=== PATIENT | female | born 1990 | race Caucasian/White ===

== ENCOUNTER 2022-09-14 13:07 | Inpatient (IN) ==
[2022-09-15] MEDS ORDERED: LIDOCAINE 1% LOCAL 20 ML VIAL INFIL PRN (07:38)
[2022-09-15] MEDS ORDERED: OXYTOCIN 30 UNITS/500 ML BAG IV PRN ×3 (07:38→16:56)
--- NOTE | 2022-09-15 07:41 | History & Physical Report ---
Date of Service September 15, 2022 Assessment & Plan (1) with 39 completed weeks gestation: (2) Encounter for induction of labor: Plan admit. Plan to induce per pitocin. Fetus category one. Anticipate . Admission and Anticipated Discharge Date Admission Date: September 15, 2022 History of Present Illness Chief Complaint: elective induction Primary Care Provider: Christin Edward MD Patient is a 32yowf who presents at39 2/7 weeks for elective induction. Patient has had an uncomplicated . occasional contraction. no lof/vb. +fm and Delivery Plans Flu shot elsewhere 2021 SB Desires elective induction 09/15 OB Labs: Blood Type B Positive 02/12/22 Antibody Screen NEGATIVE 02/12/22 Hemoglobin 11.5 g/dl (12.0-16.0) L 07/02/22 Hematocrit 34.8 % (34.1-44.9) 07/02/22 Mean Corpuscular Volume 88.5 fL (80-100) 02/12/22 Platelet Count 273 K/uL (130-400) 02/12/22 Rubella IgG Antibody Immune (Immune) 02/12/22 Rapid Plasma Reagin Nonreactive (Nonreactive) 02/12/22 Hepatitis B Surface Antigen. NON-REACTIVE (NON-REACTIVE) 02/12/22 Hepatitis C Antibody (EIA) NON-REACTIVE (NON-REACTIVE) 02/12/22 HIV (1&2) Ag and Ab Confirmation NON-REACTIVE (NON-REACTIVE) 02/12/22 Glucose 1 Hour 50 gm Load 170 mg/dl (70-130) H 04/16/22 Maternal Serum Alpha Fetoprotein 44.8 ng/mL 04/16/22 OB Optional Labs: Chlamydia trachomatis RNA NOT DETECTED (NOT DETECTED) 02/12/22 Neisseria gonorrhoeae RNA NOT DETECTED (NOT DETECTED) 02/12/22 Alpha Fetoprotein Triple Screen SEE NOTE 04/16/22 Labs Reviewed: 02/12/22- Hep B- Non reactive, Hep C- Non reactive, HIV- Non reactive cf/sma-negative--mln cfdna-low risk--mln passed 2 hr gtt x 2 gbs negative. Allergies Allergy/AdvReac Type Severity Reaction Status Date / Time No Known Allergies Allergy Verified 09/15/22 07:49 Home Medications Medication Instructions Recorded Confirmed Type prenat.vits,arelis,[id number] 1 tab PO DAILY 02/05/22 09/15/22 History breast pump #1 ea 07/23/22 09/12/22 Rx hydrocortisone 2.5 % topical cream 1 applic [place] BID PRN hemorrhoids 08/13/22 09/15/22 Rx with perineal applicator #30 grams (Anusol-HC) Patient History Medical History Anxiety Depression Hemorrhoids during History of chicken pox Varicella vaccination Surgical History S/P wisdom tooth extraction Family History Aunt Breast cancer Father Prostate cancer Mother Diabetes Hypertension Hypercholesteremia Denies family history of Ovarian cancer Colorectal cancer Social History Smoking Status: Never smoker Hx Alcohol Use: No Hx Substance Use: No marital status: marital status details: Richardson Banuelos(30) [phone] Current Living Situation: Spouse and Family Current Living Situation Comment: lives with spouse, daughter, dog current occupational status: employed current occupation: [employer] Feels Safe at Home: Yes Physical Exam Constitutional: WD/WN, vitals as above Cardiovascular: Extremities: no calf tenderness and no edema Gastrointestinal (Abdomen): soft, gravid, nt Psychiatric: A+Ox3, euthymic affect Genitourinary: cx--4/50/-2 toco--rare efm--140s wtih mod variability, accels to 160s, no decels Coding Level of Care Code None Diagnoses with 39 completed weeks gestation Z3A.39 Encounter for induction of labor Z34.90
[2022-09-15 08:15] LABS: Hematocrit (blood only) 35.7 % (34.1-44.9); Hemoglobin 12.3 g/dl (12.0-16.0); Mean Corpuscular Hgb Conc 34.5 g/dL (32.0-36.0); Mean Corpuscular Volume 87.1 fL (80.0-100.0); Mean Platelet Volume 11.3 fL (9.4-12.3); Platelet Count 218 K/uL (130-400); RDW Coefficient of Variation 13.8 % (11.5-14.5); RDW Standard Deviation 43.3 fL (36.4-46.3); White Blood Count 7.89 K/ul (4.8-10.8)
[2022-09-15] MEDS: LACTATED RINGER'S 1,000 ML IV PRN ×2 (08:48→12:22)
[2022-09-15] MEDS ORDERED: ePHEDrine sulfate 50 MG/ML AMP ONE (11:30)
[2022-09-15] MEDS ORDERED: fentaNYL citrate 100 MCG/2 ML VIAL ONE (11:30)
[2022-09-15] MEDS ORDERED: LIDOCAINE 2%/EPINEPHRINE 1:200,000 20 ML SDV ONE (11:31)
[2022-09-15] MEDS ORDERED: fentaNYL 2MCG/ML ROPIVACAINE 1.25MG/ML 100 ML BAG EPI ONE (11:31)
[2022-09-15] MEDS ORDERED: BUPIVACAINE 0.25% 30 ML VIAL ONE (11:31)
[2022-09-15] MEDS ORDERED: SODIUM CHLORIDE 0.9% INJ 10 ML VIAL ONE (11:31)
[2022-09-15] MEDS ORDERED: NALOXONE HCL 1 MG in SODIUM CHLORIDE 0.9% 1000ML 1,000 ML IV PRN (11:52)
[2022-09-15] MEDS ORDERED: ePHEDrine sulfate 50 MG/ML AMP IV PRN (11:52)
[2022-09-15] MEDS ORDERED: NALBUPHINE HCL INJ 10 MG/ML AMP IV PRN (11:52)
[2022-09-15] MEDS ORDERED: ONDANSETRON INJ 2 MG/ML 2 ML VIAL IV PRN (11:52)
[2022-09-15] MEDS ORDERED: diphenhydrAMINE 50 MG/ML VIAL IV PRN (11:52)
[2022-09-15] MEDS ORDERED: NALOXONE HCL 0.4 MG/1 ML VIAL/CARP IV PRN (11:52)
[2022-09-15] MEDS ORDERED: fentaNYL 2MCG/ML ROPIVACAINE 1.25MG/ML 100 ML BAG EPI PRN (11:52)
--- NOTE | 2022-09-15 11:54 | Anesthesiology Consultation ---
Date of Service September 15, 2022 Assessment & Plan Chart Review Chart Review: Patient NOT seen in Pre Admission Testing and Acceptable Risk for Labor Epidural Consults Requested none ASA ASA2 Proposed Anesthesia Anesthesia Type: Labor Epidural and CSE Risk / Benefits Reviewed With: PT / POA / Parent / Guardian, Accepts Plan and Informed Consent Obtained History Height/Weight Height: 5 ft 3 in Weight: 74.843 kg Allergies Allergy/AdvReac Type Severity Reaction Status Date / Time No Known Allergies Allergy Verified 09/15/22 07:49 Medications Home Medications Medication Instructions Recorded Confirmed Last Taken prenat.vits,arelis,[id number] 1 tab PO DAILY 02/05/22 09/15/22 09/14/22 21:00 breast pump #1 ea 07/23/22 09/12/22 Unknown hydrocortisone 2.5 % topical cream 1 applic [place] BID PRN hemorrhoids 08/13/22 09/15/22 Unknown with perineal applicator #30 grams (Anusol-HC) Active Medications Generic Name Dose Route Start Last Admin Trade Name Freq PRN Reason Stop Dose Admin Lactated Ringer's 1,000 mls @ 125 mls/hr 09/15/22 07:38 09/15/22 11:37 Lr IV 09/17/22 07:37 999 mls/hr .Q8H PRN Infusion L&D Protocol Protocol Oxytocin 30 units in 500 mls @ 7 mls/hr 09/15/22 07:43 09/15/22 11:00 Pitocin IV 09/17/22 07:42 0.42 units/hr .Q24H PRN 7 mls/hr Labor Induction/Augmentation Titration Protocol 0.42 UNITS/HR NPO Date Last Intake of Fluids: 09/15/22 Time Last Intake of Fluids: 11:00 Date Last Intake of Solids: 09/15/22 Time Last Intake of Solids: 08:00 Past Medical History Medical History Anxiety Depression Hemorrhoids during History of chicken pox Varicella vaccination Exercise / Class Metabolic Activity II 4-5 Yardwork/Stairs/Walk up hill Past Family History Family History Aunt Breast cancer Father Prostate cancer Mother Diabetes Hypertension Hypercholesteremia Denies family history of Ovarian cancer Colorectal cancer Past Surgical History Surgical History S/P wisdom tooth extraction Past Anesthesia History No Hx of Anesthesia Complications and No Family Hx of Anesthesia Complications History of PONV No Hx of PONV and No Hx of Motion Sickness Social History Smoking Status: Never smoker Hx Alcohol Use: No Hx Substance Use: No substance use type: does not use Review of Systems no chest pain or sob Physical Exam Vital Signs Last Vital Signs Temp 36.8 C 09/15/22 11:00 Pulse 73 09/15/22 11:50 Resp 18 09/15/22 11:00 BP 114/70 09/15/22 10:54 Pulse Ox 99 09/15/22 11:50 ENMT Mouth: no TMJ abnormality Thyromental Distance: > or= 3.5 Finger Breadths Mallampati Class: II Neck normal visual inspection Respiratory normal respiratory effort Auscultation: lungs clear to auscultation bilaterally Cardiovascular Rate/Rhythm: regular rate and regular rhythm Musculoskeletal Spine: normal cervical ROM Neurologic moves all extremities Psychiatric Orientation: alert and oriented x 3 Testing Laboratory Results 09/15/22 08:02
--- NOTE | 2022-09-15 16:48 | Delivery Summary ---
Vaginal Delivery Summary Date of Service September 15, 2022 Vaginal Delivery Summary Spontaneous vaginal delivery the patient was induced at 39+ weeks 1 prior vaginal livery group B strep negative COVID-negative she was given Pitocin received an epidural and then artificial rupture of membranes fluid was clear then she rapidly progressed to fully dilated pushing a baby in occiput anterior position. Once the head was delivered from the vagina mouth and then nares were suctioned there was a loose nuchal cord over the head this was passed gently over the baby's head gentle traction on the baby no excessive force was used easy delivery live vigorous female cord clamped and cut cord blood obtained placenta removed with gentle traction IV Pitocin started uterine tone improved inspection of the vagina revealed no tearing sponge and instrument counts correct estimated blood loss 200 mL
[2022-09-15] MEDS ORDERED: bisacodyL 10 MG SUPP PR PRN (16:56)
[2022-09-15] MEDS ORDERED: ACETAMINOPHEN 325 MG TAB PO PRN (16:56)
[2022-09-15] MEDS ORDERED: HYDROCORTISONE ACETATE 25 MG SUPP PR PRN (16:56)
[2022-09-15] MEDS ORDERED: oxyCODONE/ACETAMINOPHEN 5mg/325mg TAB PO PRN (16:56)
[2022-09-15] MEDS ORDERED: DIPHTHERIA/TETANUS/PERTUSSIS 0.5 ML SYR/VIAL IM ONE (16:56)
[2022-09-15] MEDS ORDERED: BENZOCAINE 20% AER SPR 82.5 GM CAN EXT PRN (16:56)
--- NOTE | 2022-09-15 18:40 | Anesthesia Procedure Note ---
Date of Service September 15, 2022 Anesthesia Post Epidural Note Vital Signs Vital Signs: Temp Pulse Resp BP Pulse Ox 36.7 C 82 18 100/67 99 09/15/22 16:32 09/15/22 18:32 09/15/22 16:32 09/15/22 18:32 09/15/22 16:30 Pain Intensity Abdomen: Pain Intensity: 4 Notes Mental Status: alert / awake / arousable and participated in evaluation Nausea / Vomiting: adequately controlled Pain: adequately controlled Airway Patency, RR, SpO2: stable & adequate BP & HR: stable & adequate Hydration State: stable & adequate Neuraxial Anesthesia: was administered and sensory block is resolving Anesthetic Complications: no major complications apparent and Pt Satisfied with anesthetic care Epidural: Removed without complications and With tip intact
[2022-09-15] MEDS: IBUPROFEN 600 MG TAB PO PRN (20:43)
[2022-09-15] MEDS: DOCUSATE SODIUM 100 MG CAP PO SCH (20:44)
[2022-09-16] MEDS: IBUPROFEN 600 MG TAB PO PRN ×3 (03:28→11:41)
[2022-09-16 06:30] LABS: Hematocrit (blood only) 32.9 % (34.1-44.9); Hemoglobin 11.2 g/dl (12.0-16.0); Mean Corpuscular Hemoglobin 29.8 pg (25.0-34.0); Mean Corpuscular Volume 87.5 fL (80.0-100.0); Mean Platelet Volume 11.2 fL (9.4-12.3); Platelet Count 199 K/uL (130-400); RDW Coefficient of Variation 13.7 % (11.5-14.5); RDW Standard Deviation 43.8 fL (36.4-46.3); Red Blood Count 3.76 M/uL (3.93-5.22); White Blood Count 10.79 K/ul (4.8-10.8)
--- NOTE | 2022-09-16 07:26 | Obstetrical Progress Note ---
Date of Service September 16, 2022 Assessment & Plan (1) Encounter for supervision of normal in multigravida: day 1 the patient is doing well she wishes to go home later today she has minimal bleeding she has no extremity pain she is breast-feeding well she has no depression she has no concerns she will likely be discharged 23 hours from delivery all questions answered she will follow-up in the office Subjective Ambulation: ambulating normally Voiding: no voiding problems Passing Gas:: Yes Diet Tolerance:: regular diet Physical Exam Constitutional WD/WN, vitals as above well developed and well nourished Respiratory normal respiratory effort, lungs clear to auscultation normal respiratory effort Cardiovascular RRR, no murmur, no edema Gastrointestinal (Abdomen) normal bowel sounds, soft, nontender, no hepatosplenomegaly Results & Data ([facility]) Vital Signs (Past 12 Hours) Vital Signs Temp Pulse Resp BP Pulse Ox O2 Del Method 09/16/22 03:30 97.7 F 78 16 109/74 98 Room Air 09/16/22 00:08 98.1 F 69 18 122/77 98 09/15/22 19:30 99.1 F 80 16 117/75 97 Room Air
[2022-09-16] MEDS: DOCUSATE SODIUM 100 MG CAP PO SCH (07:32)
[2022-09-16] MEDS ORDERED: PRENATAL VITAMIN 1 TAB PO SCH (08:00)
[2022-09-16] MEDS ORDERED: bisacodyL 5 MG TABEC PO SCH (20:00)
== END 2022-09-16 17:30 | disposition home or self-care (01) | DRG 807 ==
LOC: 4S1 09-15 07:36 → 4E2 09-15 19:02